=== PATIENT | male | born 1985 | race Caucasian/White ===

== ENCOUNTER 2023-09-09 07:21 | Outpatient (OUT) | payer BC, SELFPAY ==
--- NOTE | 2023-09-09 | PCN_ITS ---
CARDIAC STRESS TEST Requesting Physician: Misha Barraza M.D. Procedure Date: PERFORMING PROVIDER: Desirae Trevino M.D. TREADMILL TYPE: Treadmill stress test with nuclear myocardial perfusion imaging. Resting EKG: Normal sinus rhythm with rightward axis deviation. Protocol: Marcellus. Resting Heart Rate: 91 Peak Heart Rate: 169 Peak Maximal Heart Rate Percentage: 93% Resting Blood Pressure: 116/80 Peak Blood Pressure: 160/98 Exercise Time: 9 minutes 1 second Stage Reached: 3 Max METS: 10.10 Reason for Termination: Target heart rate achieved/dyspnea. Heart Rate Recovery: Normal. Chronotropic Response Index: 0.86, normal. Functional Capacity: Average Blood Pressure Response: Normal ST Changes: Less than 1 mm changes. Symptoms: No chest pain, no palpitation, dyspnea towards end of exam, resolved quickly at rest. Arrhythmias: None noted. CONCLUSIONS: 1. Baseline EKG shows normal sinus rhythm with rightward axis deviation. 2. No definite EKG changes meeting the criteria for ischemia. 3. Benitez treadmill score 9, portending low risk of angiographically significant coronary artery disease. 4. Please refer separately interpreted and reported nuclear myocardial perfusion imaging. MTDD
--- NOTE | 2023-09-09 07:15 | NM_ITS ---
Patient Name: RAMYA HARTMANN MR#: [id number] : 1985 Exam Date: 09/09/2023 Ordering Doctor: DR Misha Barraza . RADIOLOGY REPORT PROCEDURE: NM MARY ALICE PERF SPECT REST STR COMPARISON: None. INDICATIONS: CHEST PAIN, PALPITATIONS TECHNIQUE: Exam Description: Stress/Rest one day protocol gated SPECT Rest Imagin.5 mCi Tc-99m Cardiolite IV on 09/09/2023 Stress Imaging 30.4 mCi Tc-99m Cardiolite IV on 09/09/2023 Exercise Protocol: Marcellus Heart Rate (bpm): Rest: 91 Max: 169 PMHR: 93 Blood Pressure: Rest: 116/80 Max: 160/98 Symptoms: Rest and peak stress ECG findings were pending and the exercise portion of the study was pending per attending physician Dr. SONI . For more details please see separate cardiac stress test report. FINDINGS: QUALITY OF STUDY: Excellent. PERFUSION DEFECT: None. LOCATION: N/A SIZE: N/A. SEVERITY: N/A. TYPE: N/A. WALL MOTION: Normal. LV SIZE: Normal. 107 mL. TID / TCD: None; 0.9 LVEF: Normal. Calculated EF 69%. SUMMARY: Myocardial perfusion imaging study is NORMAL. CONCLUSION: 1. Normal nuclear medicine myocardial perfusion scan. Dictated by: Bulmaro Campbell M.D. on 09/09/2023 at 13:55 Approved by: Bulmaro Campbell M.D. on 09/09/2023 at 13:58
== END 2023-09-09 07:22 | disposition home or self-care (01) ==
LOC: NM 07:21
PROVIDERS: PCP Family Medicine; Visit Provider Family Medicine
DX: R00.2 Palpitations (principal)
CPT/HCPCS: 78452; 93017; A9500